=== PATIENT | female | born 1985 | race African-American/Black ===

== ENCOUNTER 2023-07-13 05:13 | Inpatient (IN) | payer MEDICAID, SELFPAY ==
[2023-07-13] VITALS (33 sets, daily range): BP systolic 91–127; BP diastolic 50–83; PULSE 55–78; RESP 14–18; TEMP 36.3–36.9; O2SAT 95–98; BMI 28.9
[2023-07-13 05:57] LABS: Hemoglobin* 12.7 gm/dL (12.0-16.0)
[2023-07-13] MEDS: LACTATED RINGERS 1000 ML 1,000 ML 700 ML IV (05:58)
--- NOTE | 2023-07-13 07:09 | W.PM.LDBA ---
Subjective History of Present Illness Narrative: Patient is being admitted to Labor and Delivery for repeat delivery. She is a 37 year old -0-1-2 woman at 39 0/7 weeks gestation. She has a history of two previous cesareans. She is accompanied by her . She speaks Turkmen as a first language. Front Office Medical Assistant is here today as well. From her last consult note with Dr. Ying: 01/19/2023: Single living intrauterine with sonographic gestational age of 14 weeks 0 days, MORELIA: 07/20/2023. 03/01/2023: Average gestational age: 19 weeks 4 days, EFW: 302 g which lies at the 31st percentile. BPD: 20 percentile, head circumference 24th percentile, abdominal circumference 29 percentile, femur length 44th percentile. Normal anatomy. Posterior placenta without evidence of placenta previa. Normal amount of amniotic fluid. Cervix is closed and measures 3.0 cm. Labs on 01/11/2023: Blood type and group A positive, antibody screen negative, treponema pallidum negative, rubella immune, hepatitis-B surface antigen nonreactive, hepatitis-C nonreactive, HIV nonreactive, varicella immune, hemoglobin 13.5, platelets a 620211, gonorrhea chlamydia negative. OB history: 012 2014: First-trimester spontaneous 08/31/2014: 40 weeks/male/7 lb 11 oz/ due to failure to progress in the 1st stage of labor/this was performed in [place] 02/06/2017: 39 weeks 6 days/male/8 lb 7 oz/repeat due to history of / hemorrhage-QBL: 1263 mL. Normal ovaries, tubes and uterus. I suspect uterine atony but this was not described at operative note. Current : Girl! Predictive Maintenance Technician history: LMP: Uncertain, patient and would like to have 1 more baby in the future. Past medical history: Conductive hearing loss, bilateral, major depression, anxiety, history of BCG vaccination, history of recurrent ear infections, history of vitamin B12 deficiency Medications: Please see list Allergies: None Surgical history: section x2, right tympanoplasty Family history: Noncontributory Social history: Patient is a [id number] mom, nonsmoker, no alcohol use, no recreational drug use, no concerns about safety or abuse. Patient lives with her and her 2 oldest sons Her full history and physical was dictated by Dr. Chang. Please see this for details. OB - Problem Based A/P Additional Plan (1) : Status: Acute (2) Previous delivery affecting : Status: Acute Delivery/Labor/Induction Plan Plan: Section OB Exam Physical Exam Vital signs: Temp Pulse Resp BP Pulse Ox 97.6 F 72 16 114/66 98 07/13/23 06:00 07/13/23 06:05 07/13/23 06:00 07/13/23 06:05 07/13/23 06:04 Narrative: General: Pleasant, no acute distress Heart: Regular rate and rhythm, no murmur or gallop Lungs: Clear to auscultation bilaterally Abdomen: Soft, nontender, gravid, cephalic lie
[2023-07-13] MEDS: CEFAZOLIN 2 GM INJ IVP (07:33)
[2023-07-13] MEDS: LACTATED RINGERS 1000 ML 1,000 ML 100 ML IV (07:34)
--- NOTE | 2023-07-13 08:28 | SUR.OPER ---
Baby was taken back to ob nursey for additional support. scores for 1 min and 5 min were not available in the OR at this time.
--- NOTE | 2023-07-13 08:53 | P.OBPRC_ITS ---
Procedure Date of procedure: 07/13/23 Pre-op diagnosis: 39 0/7 weeks' gestation, 2 previous deliveries Post-op diagnosis: same Procedure Done: Global Will [facility] bill your pro fee for this procedure?: Yes Blood Loss Measurement Type: QBL (647) Bakri Used: No IV fluids (mL): 2,000 Urine Output (mL): 250 Surgeon: Clair Kwong MD Promotions Producer: SOFÍA Brannon Anesthesia Type: Spinal Findings: 1. Female infant, cephalic OT presentation, Apgars 5 & 5, weight pending at this time. 2. Normal appearance of uterus, bilateral tubes and ovaries Procedure Name: Repeat low-transverse delivery Procedure Description: PREOPERATIVE DIAGNOSIS: Patient was taken to the operating room with IV running. She received cefazolin in preoperative prophylaxis. Spinal anesthesia was administered. Alcala catheter was inserted. She was prepped and draped in the usual sterile fashion. Anesthesia was tested and found to be adequate. A low-transverse skin incision was made with a scalpel and carried through to the underlying layer of fascia with the scalpel. The subcutaneous fat was dissected off the underlying fascia with Bovie. The fascia was nicked in the midline with a scalpel, and this incision was extended laterally with scissors. The fascia was dissected off the underlying rectus muscles sharply. The rectus muscles were in the midline. Peritoneum was entered bluntly. Scissors were used to widen this opening laterally. Tutu O retractor was inserted and tightened down, providing excellent visualization of the lower uterine segment. The bladder reflection was found to be well below the planned site for hysterotomy. Low-transverse uterine incision was made with a scalpel. Incision was widened bluntly. The 's head was grasped through the hysterotomy and delivered with the help of fundal pressure. The remainder of the body delivered without incident. Cord was clamped and cut after 30 seconds. was handed off to attending nurses. The placenta was delivered with gentle traction on the cord. The uterus was cleaned of all clots and debris with the dry lap pad. The hysterotomy was reapproximated with 0 Vicryl in a running, locked fashion. Three imbricating [id number] sutures were used to obtain hemostasis. The lower uterine segment was noted to be thin. The adnexa were examined and noted to be normal in appearance. The cul-de-sac and gutters were cleansed with dampened laparotomy sponge, removing any further clots and debris. The Tutu O retractor was removed. The hysterotomy was reexamined and found to be hemostatic. The peritoneum was reapproximated with 2 0 Vicryl in a running fashion. The rectus muscles were examined and Bovie used on bleeding vessels. The fascia was reapproximated with 0 Vicryl in a running fashion. Subcutaneous fat was irrigated and Bovie used on oozing vessels. The subcutaneous fat was reapproximated with 2 0 plain gut suture in an interrupted fashion. The skin was closed with a subcuticular stitch of 4-0 Monocryl. Surgical glue was applied above this. Patient tolerated procedure well was taken to recovery area in stable condition. Complications: No Pathology: none sent Surgery Debrief Performed: Yes Condition: stable
--- NOTE | 2023-07-13 08:59 | W.ANESCHARGE ---
Anesthesia Charges Start Date/Time Anesthesia Start Date: 07/13/23 Anesthesia Start Time: 07:18 Stop Date/Time Anesthesia Stop Date: 07/13/23 Anesthesia Stop Time: 08:58
--- NOTE | 2023-07-13 09:01 | P.NB_ITS ---
Nerve Block Nerve Block Time Seen by Provider: 08:50 Date Seen: 07/13/23 Type of block requested by surgeon for post-operative analgesia: TAP Side: bilateral Time out performed: Yes Verification of patient name: Yes Verification of date of : Yes Site marking: alternative site marking Name of person performing procedure: Kamala waller Continuous monitoring Was continuous monitoring of O2 sat, B/P, supervisor sawmill, recorded every 15 minutes?: Yes Procedure Checklist: sterile prep, needles and gloves Ultrasound guided. Images saved: Yes Medications given in 5ml increments after negative aspiration: Marcaine %: 0.25 mL: 30 and Exparel mL: 10 Patient tolerated procedure well: Yes Block Charges Block Charge (with Pro Fee): TAP Bilateral Use of Ultrasound Machine for Block: Yes- US Guidance/pain block
[2023-07-13] MEDS: OXYTOCIN 30 unit/500 ML in NS 30 UNIT/500 ML BAG 300 UNIT IVPB (09:25)
--- NOTE | 2023-07-13 11:08 | W.ANESCHARGE ---
Anesthesia Charges Start Date/Time Anesthesia Start Date: 07/13/23 Anesthesia Start Time: 07:18 Stop Date/Time Anesthesia Stop Date: 07/13/23 Anesthesia Stop Time: 08:58
[2023-07-13] MEDS: LACTATED RINGERS 1000 ML 1,000 ML 125 ML IV (11:30)
[2023-07-13 13:27] LABS: Basophils Absolute Auto 0.02 K/uL (0.00-0.30); Basophils Percent Auto 0.4 % (0.0-3.0); Eosinophils Absolute Auto 0.06 K/uL (0.00-0.50); Eosinophils Percent Auto 1.1 % (0.0-7.0); Hematocrit 37.1 % (33.0-51.0); Hemoglobin* 12.8 gm/dL (12.0-16.0); Immature Granulocytes Abs Auto 0.08 K/uL (0.00-0.30); Immature Granulocytes Pct Auto 1.4 %; Lymphocytes Percent Auto 21.2 % (20-44); Mean Corpuscular HGB Conc 35 gm/dL (32-36); Mean Corpuscular Hemoglobin 33 pg (26-34); Mean Corpuscular Volume 96 fL (80-100); Monocytes Percent Auto 6.4 % (0.0-11.0); Neutrophils Absolute Auto 3.94 K/uL (1.7-7.0); Neutrophils Percent Auto 69.5 % (42.0-72.0); Platelet Count* 146 K/uL (140-440); RDW Coefficient of Variation % 15.3 % (11.5-15.5); Red Blood Count 3.87 m/uL (4.00-5.20); White Blood Count* 5.66 K/uL (4.50-11.00)
[2023-07-13 13:34] LABS: Slide Review Reflex No
[2023-07-13] MEDS: KETOROLAC 30 MG/ML inj IVP ×2 (15:51→22:00)
[2023-07-14] VITALS (11 sets, daily range): BP systolic 92–106; BP diastolic 58–68; PULSE 78–102; RESP 14–18; TEMP 36.8–37; O2SAT 96–97
[2023-07-14] MEDS: KETOROLAC 30 MG/ML inj IVP ×3 (04:02→16:07)
--- NOTE | 2023-07-14 08:21 | PM.OBPNVD1 ---
OB - PN:Subj Subjective Time Seen by Provider: 08:59 Date Seen: 07/14/23 Patient comments OB post-: pain well controlled, tolerating diet and flatus present status: [place] feeding status: breast and bottle feeding Narrative: Juan is a 37yo now 2 who is postop day 1 from a repeat low-transverse section. The surgery was uncomplicated. She states her pain is under good control with the pain medications. She has been ambulating without difficulty. She is tolerating a regular diet. She has passed flatus. She is breast feeding and considering supplementing with formula as needed. She is Ethipopian and her spouse is translating for her today. OB - PN: Obj Exam Physical Exam: Vital signs: Temp Pulse Resp BP Pulse Ox O2 Del Method 98.6 F 78 18 95/60 97 Room Air 07/14/23 04:01 07/14/23 04:01 07/14/23 06:02 07/14/23 04:01 07/14/23 04:01 07/14/23 04:01 Narrative: GENERAL APPEARANCE: Pleasant, , well-groomed woman in no acute distress. VITAL SIGNS: as noted in nursing notes HEAD: Normocephalic, atraumatic. THYROID: no masses, nodularity, tenderness or enlargement. LUNGS: Clear to auscultation bilaterally without wheezes, rales or rhonchi. HEART: Regular rate and rhythm with normal S1 and S2. No gallop, rub or murmur. ABDOMEN: Soft, nontender, nondistended, with normal bowels sounds throughout. INCISION: Dressing removed. Clean, dry and intact with sutures and skin adhesive gel. No evidence of erythema, induration or skin separation. EXTREMITIES: No cyanosis, clubbing, or edema. No varicosities. NEUROLOGIC: Normal gait and balance. Normal deep tendon reflexes at bilateral patella 2+/2, equal without clonus. PSYCHIATRIC: alert and oriented x3. Normal speech pattern, eye contact and affect. SKIN: Warm, dry, and well perfused. Good turgor. No lesions, nodules or rashes. Urinary Catheter Management: Urethral: Cath placed during this visit: yes Urethral indwelling: No Reason for continuing: surgical procedure Insertion date: 07/13/23 Insertion time: 07:00 OB - PN: Obj Data Labs Labs: Laboratory Results - last 24 hr 07/13/23 07/14/23 05:24 07:20 WBC 5.66 RBC 3.87 L Hgb 12.8 11.0 L Hct 37.1 MCV 96 MCH 33 MCHC 35 RDW Coeff of Jv 15.3 Plt Count 146 Neut % (Auto) 69.5 Lymph % (Auto) 21.2 Yell % (Auto) 6.4 Eos % (Auto) 1.1 Baso % (Auto) 0.4 Neut # (Auto) 3.94 Lymph # (Auto) 1.20 Yell # (Auto) 0.40 Eos # (Auto) 0.06 Baso # (Auto) 0.02 Abs Immat Gran (auto) 0.08 Imm/Tot Granulo (auto) 1.4 OB - PN: A/P Delivery Assessment and Plan (1) : Status: Acute (2) Previous delivery affecting : Status: Acute (3) Status post repeat low transverse section: Status: Acute Plan 1. Continue postoperative and care. 2. Planning on discharge home tomorrow.
[2023-07-14] MEDS: DOCUSATE SODIUM 100 MG CAPSULE PO (10:38)
[2023-07-14] MEDS: OXYCODONE 5 MG TABLET PO ×2 (13:30→19:53)
[2023-07-14] MEDS: SIMETHICONE 80 MG TAB.CHEW PO (19:53)
[2023-07-14] MEDS: ACETAMINOPHEN 500 MG TABLET 1000 MG PO (19:53)
[2023-07-15] MEDS: IBUPROFEN 600 MG TABLET PO (00:03)
[2023-07-15] MEDS: OXYCODONE 5 MG TABLET PO (00:03)
[2023-07-15 00:04] VITALS: BP 94/63; PULSE 102; RESP 16; TEMP 36.9; O2SAT 98
[2023-07-15 02:07] LABS: Rapid Plasma Reagin (RPR) Non Reactive (Non Reactive)
[2023-07-15] MEDS: ACETAMINOPHEN 500 MG TABLET 1000 MG PO (08:09)
[2023-07-15] MEDS: DOCUSATE SODIUM 100 MG CAPSULE PO (08:09)
--- NOTE | 2023-07-15 08:11 | P.DS_ITS ---
DS: Providers Provider Time Seen by Provider: 08:11 Date Seen: 07/15/23 Date of admission: 07/13/23 05:13 Primary care physician: Erica Chang MD Admitting Clinician: Clair Kwong MD Consults: 07/13/23 06:22 Consult to Brush Maker Machine [CONS] Routine Comment: Reason for Consult:: Major Gifts Officer Needed Attending Physician on discharge: Estephania Hernandez MD DS: Diagnosis Discharge Diagnosis (1) Status post repeat low transverse section: Status: Acute Exam Const: Vital Signs, click to edit/add: Vital Signs - 24 hr 07/14/23 08:24 07/14/23 16:11 07/14/23 19:56 Temperature 98.3 F 98.4 F Pulse Rate [Pulse Oximeter] 81 102 H 89 Respiratory Rate 16 16 18 Blood Pressure [Ri ght Arm] 92/60 94/58 L 96/68 Pulse Oximetry 96 96 Oxygen Delivery Me thod Room Air Room Air 07/15/23 00:04 Temperature 98.5 F Pulse Rate [Pulse Oximeter] 102 H Respiratory Rate 16 Blood Pressure [Ri ght Arm] 94/63 Pulse Oximetry 98 Oxygen Delivery Me thod Room Air OB - DS: Summary Hospital Course Hospital Course: Hospital Course: Juan was admitted to the hospital on 07/13/2023 for a s cheduled repeat low-transverse . Her surgery was uncomplicated. Her postoperative course was also uncomplicated. By postoperative day 1, she was tolerating a regular diet, ambulating without difficulty, passing flatus and pain was well controlled with oral pain medications. She would like to be discharged home today. Labs: Preoperative hemoglobin 12.7, postoperative hemoglobin 11.0. Objective: General: Alert and oriented x3. Pleasant, [place] woman in no acute distress. Vital signs: See EMR. Heart: Regular rate and rhythm without gallop, rub or murmur. Chest: Clear to auscultation bilaterally. Abdomen: Soft, nontender, nondistended with normal bowel sounds throughout. No CVA or flank tenderness. Fundus firm at 2 cm below the umbilicus in the midline Incision(s): Clean, dry and intact w/ sutures and skin adhesive. Pelvic: Minimal vaginal bleeding, remainder of pelvic exam deferred. Extremities: No pain, edema, cyanosis or clubbing. Assessment: 37-year-old 4 para 2012 now 3 postoperative day 2 from a repeat low-transverse , doing well. Plan: 1. Discharge home today. 2. Activity restrictions reviewed with the patient. 3. Return to clinic to see Dr. Clair Kwong for a postoperative visit in 2 weeks. Peripartum Data Procedures: Procedures Operation Date: 07/13/23 07:15 Actual Procedure Side Surgeon p Repeat Section Not Applicable Clair Kwong MD Gender: Female Time Spent with Patient Time attestation: Total time spent providing and/or coordinating discharge services: Discharge Plan Discharge Disposition: Home, Self-Care Date of Admission: 07/13/23 05:13 Attending Provider on Discharge: Estephania Hernandez Primary Care Provider: Erica Chang Condition: Stable Anticipated Discharge Date/Time: 07/15/23 15:00 Discharge Medications: New docusate sodium 100 mg Capsule 100 mg PO BID PRNQty: 100 0RF ibuprofen 600 mg Tablet 600 mg PO Q6H PRN (Reason: Pain) Qty: 30 0RF oxycodone 5 mg Tablet 5 mg PO 3XD PRN (Reason: Pain) Qty: 21 0RF Continued sertraline [Zoloft] 100 mg tablet 100 mg PO QDAY ferrous fumarate 324 mg (106 mg iron) tablet 324 mg PO QDAY DHA 200 mg capsule 200 mg PO DAILY Discharge Orders: Discharge Order (Routine); Ordered 07/15/23 Ordered By: Estephania Hernandez Patient Education: (DC) Additional Instructions: ACTIVITY RESTRICTIONS: * Nothing vaginally for 6 weeks: no tampons/intercourse * No driving while taking narcotic pain medication during the day. 1-2 weeks. Okay to be the passenger anytime. * Lifting restriction: Maximum of 20 pounds for 6 weeks. * High impact or core exercises: 6 weeks. * Submerge the incision in water (bath/pool/amin): 2 weeks. * Off of work/school for a minimum of 8 weeks NO RESTRICTIONS for: * Walking * Going up/down stairs * Showering Symptoms to report to doctor: -Bleeding that saturates more than one pad per hour ?-Passing clots larger than the size of a golf ball ?-Pain not relieved by prescribed medication ?-Fever above 100.4 degrees Fahrenheit ?-A foul vaginal odor ?-Difficulty in emotions, mood and functions ?-Thoughts of hurting yourself and/or ?-Painful, reddened area in your breast ?-Any drainage, redness or tenderness in your IV/epidural site ?-Severe headache that doesn't improve after taking medications ?-Changes in vision, including temporary loss of vision, blurred vision, and/or light sensitivity ?-Upper abdominal pain (usually under ribs on the right side) ?-Decrease in urination or painful, frequent urinating ?-Chest pain ?-Shortness of breath ?-Tenderness or pain with redness and/swelling in the calf(s) of your leg Follow-up: 1. [facility] [address] Kwong: incision check. 2. A 6 week visit for an annual physical exam with Dr. Chang. consultation services are available to all mothers and babies for the first year after delivery.? To make an appointment, please call [phone]. Follow Up Appointments: Clair Kwong MD [Staff Physician] - Erica Chang MD [Primary Care Provider] - Forms: [facility] Inst[facility]
[2023-07-15 08:16] VITALS: BP 90/62; PULSE 102; RESP 16
== END 2023-07-15 10:30 | disposition home or self-care (01) | DRG 788 ==
PROVIDERS: Admitting Provider Obstetrics & Gynecology; PCP Family Medicine; Visit Provider Obstetrics & Gynecology
PROC: 10D00Z1 Extraction of Products of Conception, Low, Open Approach (ICD-10-PCS; CPT 59514; principal; 2023-07-13 07:15)
DX: O34.211 Maternal care for low transverse scar from previous cesarean delivery (principal); O99.344 Other mental disorders complicating childbirth; F32.9 Major depressive disorder, single episode, unspecified; F41.9 Anxiety disorder, unspecified; G89.18 Other acute postprocedural pain; Z37.0 Single live birth; Z3A.39 39 weeks gestation of pregnancy
CPT/HCPCS: 01961; 36415; 64488; 76815; 76942; 85018; 85025; 86592; 86850; 86900; 86901; A9270; C9290; J0665; J0690; J1100; J1885; J2274; J2405; J2590; J3010; J7120